=== PATIENT | female | born 1930 | race Caucasian/White ===

== ENCOUNTER 2017-07-15 17:29 | Emergency (ER) | payer MEDICARE, OTHER ==
[~2017-07-15] VITALS: Ht 157.5 cm; Wt 60.0 kg
[2017-07-15 17:45] VITALS: BP 198/106; PULSE 84; RESP 23; TEMP 97.3; O2SAT 95
--- NOTE | 2017-07-15 17:54 | PD ---
HPI Chief Complaint: Chest Pain Time Seen by Provider: 17:34 Travel History International Travel<30 days: No Contact w/Intl Traveler<30days: No Traveled to known affect area: No History of Present Illness HPI The patient was seen and examined in the presence of the nurse. This patient complains of chest pain. Location is center sternum. Described as a pressure. It is not exertional. It's currently gone and she is pain-free. Symptoms were moderately severe. No alleviating factors. Exacerbating factors. Symptoms are not pleuritic. No chest wall injury. Denies fever. She has COPD and is oxygen dependent. She says that she was hospitalized at [facility] one week ago for chest pain and she says they did a stress test. She has no idea what the results were. Duration is 10 days PFSH Past Medical History ?: Not Social History Alcohol Use: No Tobacco Use: No Substance Use: No Allergies-Medications (Allergen,Severity, Reaction): Coded Allergies: Penicillins (Verified Allergy, Mild, Rash, 07/15/17) diltiazem (Verified Allergy, Unknown, 07/15/17) Reported Meds & Prescriptions Reported Meds & Active Scripts Active Reported Clopidogrel (Clopidogrel Bisulfate) 75 Mg Tab 75 Mg PO HS Proair Hfa 8.5 GM Inh (Albuterol Sulfate) 90 Mcg/Act Aer 2 Puff INH Q4-6H PRN 108 mcg/actuation [place]-3 Fish Oil/Vitamin (Fish Oil-Cholecalciferol) 1,000-1,000 Mg Cap 1 Cap PO DAILY Losartan (Losartan Potassium) 100 Mg Tab 100 Mg PO DAILY Metoprolol Succinate ER 24 HR (Metoprolol Succinate) 25 Mg Tab 25 Mg PO DAILY Review of Systems General / Constitutional: No: Fever Eyes: No: Visual changes HENT: No: Headaches Cardiovascular: Positive: Chest Pain or Discomfort Respiratory: Positive: Shortness of Breath Gastrointestinal: No: Abdominal Pain Genitourinary: No: Dysuria Musculoskeletal: No: Pain Skin: No Rash Neurologic: No: Weakness Psychiatric: No: Depression Endocrine: No: Polydipsia Hematologic/Lymphatic: No: Easy Bruising Physical Exam Narrative GENERAL: Well-nourished, well-developed patient in no apparent distress. SKIN: Focused skin assessment reveals no rash and nodules. Skin is Warm and dry. HEAD: Atraumatic. Normocephalic. EYES: Pupils equal and round. No scleral icterus. No injection or drainage. ENT: No nasal bleeding or discharge. Mucous membranes pink and moist. NECK: Trachea midline. No JVD. CARDIOVASCULAR: Regular rate and rhythm. No murmur appreciated. RESPIRATORY: No accessory muscle use. Clear to auscultation. Breath sounds equal bilaterally. GASTROINTESTINAL: Abdomen soft, non-tender, nondistended. Hepatic and splenic margins not palpable. MUSCULOSKELETAL: No obvious deformities. No clubbing. No cyanosis. No edema. Chest wall is nontender. She has had a left mastectomy. NEUROLOGICAL: Awake and alert. No obvious cranial nerve deficits. Motor grossly within normal limits. Normal speech. PSYCHIATRIC: Appropriate mood and affect; insight and judgment normal. Data Data Last Documented VS Vital Signs Date Time Temp Pulse Resp B/P (MAP) Pulse Ox O2 Delivery O2 Flow Rate FiO2 07/15/17 17:45 97.3 84 23 198/106 (136) 95 Room Air Orders Orders Electrocardiogram (07/15/17 17:48) Basic Metabolic Panel (Bmp) (07/15/17 17:48) Ckmb (Isoenzyme) Profile (07/15/17 17:48) Complete Blood Count With Diff (07/15/17 17:48) Prothrombin Time / Inr (Pt) (07/15/17 17:48) Act Partial Throm Time (Ptt) (07/15/17 17:48) Troponin I (07/15/17 17:48) Chest, Single Ap (07/15/17 17:48) Ecg Monitoring (07/15/17 17:48) Iv Access Insert/Monitor (07/15/17 17:48) Oximetry (07/15/17 17:48) Oxygen Administration (07/15/17 17:48) Sodium Chloride 0.9% Flush (Ns Flush) (07/15/17 18:00) Labs Laboratory Tests Test 07/15/17 17:55 White Blood Count 7.9 TH/MM3 Red Blood Count 4.00 MIL/MM3 Hemoglobin 12.2 GM/DL Hematocrit 35.8 % Mean Corpuscular Volume 89.5 FL Mean Corpuscular Hemoglobin 30.4 PG Mean Corpuscular Hemoglobin Concent 33.9 % Red Cell Distribution Width 14.0 % Platelet Count 227 TH/MM3 Mean Platelet Volume 7.4 FL Neutrophils (%) (Auto) 67.7 % Lymphocytes (%) (Auto) 24.1 % Monocytes (%) (Auto) 6.9 % Eosinophils (%) (Auto) 0.6 % Basophils (%) (Auto) 0.7 % Neutrophils # (Auto) 5.4 TH/MM3 Lymphocytes # (Auto) 1.9 TH/MM3 Monocytes # (Auto) 0.5 TH/MM3 Eosinophils # (Auto) 0.1 TH/MM3 Basophils # (Auto) 0.1 TH/MM3 CBC Comment DIFF FINAL Differential Comment Prothrombin Time 10.0 SEC Prothromb Time International Ratio 1.0 RATIO Activated Partial Thromboplast Time 24.0 SEC Blood Urea Nitrogen 8 MG/DL Creatinine 0.56 MG/DL Random Glucose 80 MG/DL Calcium Level 9.1 MG/DL Sodium Level 134 MEQ/L Potassium Level 4.1 MEQ/L Chloride Level 98 MEQ/L Carbon Dioxide Level 33.3 MEQ/L Anion Gap 3 MEQ/L Estimat Glomerular Filtration Rate 102 ML/MIN Total Creatine Kinase 47 U/L Troponin I LESS THAN 0.02 NG/ML MDM Medical Decision Making Medical Screen Exam Complete: Yes Emergency Medical Condition: Yes Medical Record Reviewed: Yes Differential Diagnosis Differential diagnosis includes PA, angina, pericarditis, pleurisy, GERD, anxiety. Narrative Course I have reviewed the patient's electronic medical record. I reviewed her EKG which shows sinus rhythm but no ST elevation or ectopy. There are prominent P waves suggesting pulmonary disease Extended cardiac monitoring reveals sinus rhythm without ectopy She had aspirin in route Labs ordered as well as chest x-ray We are asking for old records from [facility] Chest x-ray shows no pneumothorax or consolidation Lab studies are normal including cardiac enzymes I reviewed the records and this patient had extensive workup 10-12 days ago. She had a normal stress test and an echocardiogram and a negative CTA for pulmonary embolus. Patient looks comfortable and stable for outpatient follow-up I gave her a small dose of 0.1 clonidine for blood pressure 187 systolic prior to her discharge Her hypertension is chronic and she is advised to check it and recorded daily Diagnosis Primary Impression: Chest pain Qualified Codes: R07.9 - Chest pain, unspecified Additional Impressions: COPD (chronic obstructive pulmonary disease) Qualified Codes: J43.9 - Emphysema, unspecified Accelerated hypertension Additional Instructions: Follow-up with primary care and pulmonology Med/Other Pt SpecificInfo: Other Disposition: DISCHARGE HOME Condition: Stable Petar Quintero MD Jul 15, 2017 17:54
[2017-07-15] MEDS ORDERED: ALBUAER3 INH (17:59)
[2017-07-15] MEDS ORDERED: LOSA100T PO (17:59)
[2017-07-15] MEDS ORDERED: METO1TAB42 PO (17:59)
[2017-07-15] MEDS ORDERED: CLOP75TA PO (17:59)
[2017-07-15] MEDS ORDERED: OMEGCAP PO (17:59)
[2017-07-15] MEDS ORDERED: SODIUM CHLORIDE 0.9% FLUSH 10 ML FLUSH IVF PRN (18:00)
[2017-07-15 18:13] LABS: AUTOMATED NEUTROPHIL # 5.4 TH/MM3 (1.8-7.7); BASOPHIL # 0.1 TH/MM3 (0-0.2); BASOPHIL % 0.7 % (0.0-2.0); EOSINOPHIL # 0.1 TH/MM3 (0-0.4); EOSINOPHIL % 0.6 % (0.0-4.0); HEMATOCRIT 35.8 % (35.0-46.0); HEMOGLOBIN 12.2 GM/DL (11.6-15.3); LYMPH % 24.1 % (9.0-44.0); LYMPHOCYTE # 1.9 TH/MM3 (1.0-4.8); MEAN CELL VOLUME 89.5 FL (80.0-100.0); MEAN CORPUSCULAR HEMOGLOBIN 30.4 PG (27.0-34.0); MEAN CORPUSCULAR HGB CONC 33.9 % (32.0-36.0); MEAN PLATELET VOLUME 7.4 FL (7.0-11.0); MONO % 6.9 % (0.0-8.0); MONOCYTE # 0.5 TH/MM3 (0-0.9); NEUT % 67.7 % (16.0-70.0); PLATELET COUNT 227 TH/MM3 (150-450); WHITE BLOOD COUNT 7.9 TH/MM3 (4.0-11.0)
[2017-07-15 18:38] LABS: BICARBONATE 33.3 MEQ/L (21.0-32.0); BLOOD UREA NITROGEN 8 MG/DL (7-18); CALCIUM 9.1 MG/DL (8.5-10.1); CHLORIDE 98 MEQ/L (98-107); CREATININE 0.56 MG/DL (0.50-1.00); GLOMERULAR FILTRATION RATE 102 ML/MIN (>89); GLUCOSE,RANDOM 80 MG/DL (74-106); SODIUM (NA) 134 MEQ/L (136-145)
[2017-07-15 18:42] LABS: TROPONIN I LESS THAN 0.02 NG/ML (0.02-0.05)
--- NOTE | 2017-07-15 18:53 | RADRPT ---
EXAM DATE/TIME: 07/15/2017 18:07 [place] COMPARISON: No previous studies available for comparison. INDICATIONS : Chest pain. MEDICAL HISTORY : Chronic obstructive pulmonary disease. Hypertension SURGICAL HISTORY : None. ENCOUNTER: Initial ACUITY: 1 week PAIN SCORE: 10/10 LOCATION: Left chest FINDINGS: A single view of the chest demonstrates the lungs to be symmetrically aerated without evidence of mas s, infiltrate or effusion. The cardiomediastinal contours are unremarkable. Degenerative changes and scoliosis of the thoracic spine are noted. CONCLUSION: No acute cardiopulmonary disease. Gilberto George MD on July 15, 2017 at 18:51 Board Certified Radiologist. This report was verified electronically.
[2017-07-15] MEDS ORDERED: cloNIDine HCL 0.1 MG TAB PO ONE (19:00)
[2017-07-15 20:07] VITALS: BP 189/86
--- NOTE | 2017-07-16 10:51 | EKG ---
Date Performed: 07/15/2017 Time Performed: 17:49:49 PTAGE: 87 years EKG: Sinus rhythm MARKED LEFT AXIS DEVIATION ABNORMAL ECG NO PREVIOUS TRACING DOCTOR: Alirio Alexandra Interpretating Date/Time 07/16/2017 10:50:26
== END 2017-07-15 20:08 | disposition home or self-care (01) ==
LOC: NEPE 17:29 → EDSEX 17:29 → NEPE 20:08
DX: R07.9 Chest pain, unspecified (principal); J43.9 Emphysema, unspecified; I10 Essential (primary) hypertension; R94.31 Abnormal electrocardiogram [ECG] [EKG]; Z99.81 Dependence on supplemental oxygen
CPT/HCPCS: 71045; 80048; 82550; 84484; 85025; 85610; 85730; 93005

== ENCOUNTER → 2017-08-25 | Outpatient (CLI) | payer MEDICARE, OTHER ==
[~2017-08-25] MED LIST: ALBUAER3 INH; CLOP75TA PO; LOSA100T PO; METO1TAB42 PO; OMEGCAP PO
== END ==
LOC: HRSP 10:30
PROVIDERS: ATTEND Internal Medicine
DX: J44.9 Chronic obstructive pulmonary disease, unspecified (principal)
CPT/HCPCS: 94618